=== PATIENT | female | born 1935 | race Caucasian/White ===

== ENCOUNTER 2022-12-23 11:35 | Outpatient (AMB) | payer MEDICARE, OTHER, SELFPAY ==
--- NOTE | 2022-12-23 11:59 | AM.OFFWIN_ITS ---
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 it is very swollen and red. she mentioned that she previously had surgery on her wrist and has pins and rods and wants to make sure those havent beem effected. 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 Patient fell on her outstretched hand and in the process as injured her left index finger. The finger is swollen and painful on motion. [facility] Social History Patient Tobacco Use Status: Former Tobacco user Physical Exam Vital Signs: Last Vital Signs Pulse 65 12/23/22 12:02 BP 112/70 12/23/22 12:02 Pulse Ox 98 12/23/22 12:02 Oxygen Delivery Method Room Air 12/23/22 12:02 Extrem Other: 3rd digit: Swollen and tender at the base of the finger. Pain on flexion Assessment & Plan Assessment & Plan (1) Contusion of left hand: Code(s): S60.222A - Contusion of left hand, initial encounter Qualifiers: Encounter type: initial encounter Qualified Code(s): S60.222A - Contusion of left hand, initial encounter Plan: X-ray images were personally reviewed by me. There is a fracture at the metacarpophalangeal joint, nondisplaced. A splint was applied and an orthopedic appointment was scheduled. Orders: Orders XR hand LT min 3V 12/23/22 S60.222A - Contusion of left hand, initial encounter Referrals Orthopedics Referral S60.222A - Contusion of left hand, initial encounter Coding Level of Care Code Est Pt Level 4 (29964) Diagnoses Contusion of left hand, initial encounter S60.222A Encounter type: initial encounter
[2022-12-23 12:02] VITALS: BP 112/70; PULSE 65; O2SAT 98
== END 2022-12-23 12:40 | disposition home or self-care (01) ==
PROVIDERS: Visit Provider Internal Medicine
DX: S60.222A Contusion of left hand, initial encounter (principal)
CPT/HCPCS: 99214

== ENCOUNTER 2022-12-23 12:14 | Outpatient (REF) | payer MEDICARE, OTHER, SELFPAY ==
--- NOTE | ~2022-12-23 | XR_ITS ---
EXAMINATION: XR HAND, LEFT CLINICAL INFORMATION: Left hand contusion COMPARISON: None available. TECHNIQUE: PA, lateral, and oblique views of the left hand. FINDINGS: Distal radius fracture fixation appears intact with an ununited remote avulsion fracture of the ulnar styloid. 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 Moderate to severe osteoarthritis throughout the MCP and interphalangeal joints. A fracture at the base of the 2nd proximal phalanx, at the ulnar aspect of the 2nd MCP joint is most likely chronic. Correlate for point tenderness in this location. No priors for comparison. No definite acute fracture or malalignment. XR/XR hand LT min 3V IMPRESSION: 1. No definite acute fracture or malalignment. Fracture at the base of the 2nd proximal phalanx at the ulnar aspect of the MCP joint appears chronic. Correlate for point tenderness in this location. MRI or CT could clarify. If indicated. 2. Intact distal radius fracture fixation. 3. Severe osteoarthritis.
== END 2022-12-23 12:15 | disposition home or self-care (01) ==
LOC: HO.HMGCX 12:14
PROVIDERS: PCP Internal Medicine; Visit Provider Internal Medicine
DX: S60.222A Contusion of left hand, initial encounter (principal); X58.XXXA Exposure to other specified factors, initial encounter; Y93.9 Activity, unspecified; Y92.9 Unspecified place or not applicable; Y99.9 Unspecified external cause status
CPT/HCPCS: 73130